=== PATIENT | female | born 1980 ===

== ENCOUNTER 2017-04-30 07:26 | Day surgery (SDC) | payer BC, OTHER ==
[2017-04-29 14:31] VITALS: BMI 21.9
[2017-04-30] MEDS ORDERED: Lidocaine 4% (Laryng-O-Jet) Kit MM ONE (07:38)
[2017-04-30 08:07] VITALS: O2SAT 100
[2017-04-30] MEDS ORDERED: Lactated Ringer's 1,000 ML IV ONE (08:15)
[2017-04-30] MEDS ORDERED: Propofol 10 mg/ml Inj (20 ML) ONE (08:57)
[2017-04-30] MEDS ORDERED: Midazolam 2 MG/2 ML VIAL ONE (08:57)
[2017-04-30] MEDS ORDERED: Succinylcholine 200 mg/10 ml Inj IV ONE (08:57)
[2017-04-30] MEDS ORDERED: ePHEDrine 50 mg/ml Inj ONE (08:57)
[2017-04-30] MEDS ORDERED: Dexamethasone 4 mg/1 ml ONE (09:09)
[2017-04-30] MEDS ORDERED: HYDROmorphone 0.5 mg/0.5 ml ISec IVP PRN (09:59)
[2017-04-30] MEDS ORDERED: Lactated Ringer's 1,000 ML IV SCH (09:59)
[2017-04-30 11:09] VITALS: RESP 18
[2017-04-30 12:06] VITALS: BP 116/52; PULSE 83; TEMP 97.8
--- NOTE | 2017-05-05 17:26 | OP ---
PROCEDURE DATE: 04/30/2017 PREOPERATIVE DIAGNOSIS: Irregular bleeding. POSTOPERATIVE DIAGNOSIS: Irregular bleeding, pending pathology. SURGEON: Dr. Rooney. ANESTHESIA: Dr. Florentino, general anesthesia. PROCEDURE: Hysteroscope with D and C. DESCRIPTION OF PROCEDURE: The patient in the dorsal lithotomy position under general anesthesia. The patient was prepped and draped in the usual sterile manner. Straight cath was used to empty the bladder after which a weighted-speculum placed in the posterior vagina, cervix was grasped anteriorly with single-tooth tenaculum, dilated and hysteroscopy was done. Visualizing some polypoid-like lesion and some hyperplastic tissue, since it was so difficult to get the hysteroscope D and C was decided and moderate amount of tissue was obtained and curettage. The uterus sounded to about 7 cm. The bleeding was minimal. Instruments were removed from the vagina. The patient tolerated the procedure well and was in satisfactory condition on her way to recovery room. Nicola Rooney MD
== END 2017-04-30 13:15 | disposition home or self-care (01) ==
LOC: H.OPSURG 07:26
PROVIDERS: ATTEND Specialist
DX: N92.6 Irregular menstruation, unspecified (principal)
CPT/HCPCS: 58558; 88305; J0330; J1100; J2001; J2250; J2405; J2704; J3010; J7030; J7120